=== PATIENT | female | born 1935 | race Caucasian/White ===

== ENCOUNTER → 2018-03-20 | Outpatient (CLI) | payer MEDICARE, BC ==
[~2018-03-20] MED LIST: ACET500 PO; ALBU2.5V5 INH; ALBU90OI6 INH; ALBU90OI61 INH; AMLO5 PO; BENZ100A PO; BISA10S PR; BUPR150ER PO; Bystolic10 MG PO; CVS DISPOSABLE399 ML PR; Cafergot Table1 EACH PO; Cyclobenzaprine5 MG PO; ERGO400 PO; FLUT1DIS5 INH; FURO40 PO; GABA300 PO; GUAIFENESIN AC473 ML PO; Guaifenesin Wit10 ML PO; Hair, Skin & N1 EACH PO; IBUP400 PO; Isosorbide Mono30 MG PO; LEVFLO500 PO; LIDO700A20 TOP; LISI20 PO; MELO7.5 PO; MONT10T PO; MULTI VITAMIN1 EACH PO; Milk Of Ma400 MG/5 M PO; NITR100CA PO; ONE DAILY ESS400 MCG PO; OXYC10ER PO; POTA10T PO; ROXICODONE5 MG PO; SACC250C PO; SPIR25 PO; Senna Plus Tab1 EACH PO; TAMS.4ER PO; TUDORZA PRESS400 MCG INH; Tylenol325 MG PO
[2018-03-20 08:18] LABS: Source, Urine Clean Catch
[2018-03-20 09:11] LABS: Bilirubin, Urine Neg (Neg); Blood, Urine Neg (Neg); Glucose Qualitative, Urine Neg (Normal); Ketones, Urine Neg (Neg); Leukocyte Esterase, Urine Neg (Neg); Nitrite, Urine Neg (Neg); Protein, Urine Neg (Neg); Urobilinogen, Urine NORM (Normal)
[2018-03-20 09:12] LABS: Appearance, Urine Clear (Clear); Color, Urine Yellow (P-Yellow)
== END | disposition home or self-care (01) ==
LOC: LAB EV 03-19 16:13 → EDSTATUS 08:03
PROVIDERS: Nurse Practitioner
DX: R35.0 Frequency of micturition (principal)
CPT/HCPCS: 81003

== ENCOUNTER 2018-04-03 06:58 | Day surgery (SDC) | payer MEDICARE, BC ==
[~2018-04-03] VITALS: Ht 154.9 cm; Wt 48.6 kg
--- NOTE | 2018-04-03 12:10 | NUR ---
PT RESTING COMFORTABLY, EATING LUNCH AT THIS TIME. NADN. BELTRAN
--- NOTE | 2018-04-03 15:29 | NUR ---
IV DC'D TIP INTACT, R RADIAL SITE DRESSED WITH R WRIST SPLINT IN PLACE, R/L GROIN SITES STABLE, PT'S GRANDAUGHTER PRESENT TO GIVE PT RIDE HOME, PT DC'D BY WC WITH FAMILY
== END 2018-04-03 15:48 | disposition home or self-care (01) ==
LOC: MHTC 06:58
DX: I25.10 Atherosclerotic heart disease of native coronary artery without angina pectoris (principal); I35.0 Nonrheumatic aortic (valve) stenosis; I73.9 Peripheral vascular disease, unspecified; I27.20 Pulmonary hypertension, unspecified; M79.7 Fibromyalgia; J43.9 Emphysema, unspecified; I12.9 Hypertensive chronic kidney disease with stage 1 through stage 4 chronic kidney disease, or unspecified chronic kidney disease; N18.9 Chronic kidney disease, unspecified; I25.2 Old myocardial infarction; Z87.891 Personal history of nicotine dependence; Z79.899 Other long term (current) drug therapy
CPT/HCPCS: 93456; 99152; C1760; C1769; J1644; J2250; J3010; J7030; Q9967

== ENCOUNTER 2018-04-08 11:17 | Emergency (ER) | payer MEDICARE, BC ==
[~2018-04-08] VITALS: Ht 157.5 cm; Wt 59.0 kg
[2018-04-08 11:44] LABS: BASOPHILS ABSOLUTE AUTO 0.02 K/mm3 (0.00-0.23); BASOPHILS PERCENT AUTO 0 % (0-2); EOSINOPHILS ABSOLUTE AUTO 0.11 K/mm3 (0.00-0.68); EOSINOPHILS PERCENT AUTO 2 % (0-6); Hematocrit 29.4 % (33.0-51.0); Hemoglobin 9.3 g/dL (11.5-16.0); IMMATURE GRAN ABSOLUTE AUTO 0.01 K/mm3 (0.00-0.10); IMMATURE GRAN PERCENT AUTO 0 % (0-1); LYMPHOCYTES ABSOLUTE AUTO 1.01 K/mm3 (0.84-5.20); LYMPHOCYTES PERCENT AUTO 20 % (21-46); MONOCYTES ABSOLUTE AUTO 0.49 K/mm3 (0.16-1.47); MONOCYTES PERCENT AUTO 10 % (4-13); Mean Corpuscular HGB 32.2 pg (26.0-34.0); Mean Corpuscular HGB Conc 31.6 g/dL (31.5-36.5); Mean Platelet Volume 9.1 fL (9.1-12.4); NEUTROPHILS ABSOLUTE AUTO 3.51 K/mm3 (1.96-9.15); NEUTROPHILS PERCENT AUTO 68 % (41-73); Platelet Count 210 K/mm3 (150-400); RDW Coefficient Variation 13.1 % (11.7-14.2); RDW Standard Deviation 48.9 fL (35.1-46.3); Red Blood Cell Count 2.89 M/mm3 (3.80-5.20); White Blood Cell Count 5.15 K/mm3 (4.00-11.30)
[2018-04-08 11:45] LABS: Mean Corpuscular Volume 102 fL (80-100)
[2018-04-08 12:10] LABS: Alanine Aminotransfer (ALT/SGP 14 U/L (12-78); Albumin, Blood 3.2 g/dL (3.4-5.0); Albumin/Globulin Ratio 0.8 (0.8-1.8); Alk Phos 62 U/L (50-136); Anion Gap 5 mmol/L (6-16); Aspartate Aminotrans (AST/SGOT 9 U/L (12-37); Bilirubin, Total 0.4 mg/dL (0.1-1.0); Blood Urea Nitrogen 25 mg/dL (8-24); Bun/Creatinine Ratio 33.6 (12.0-20.0); CO2, Blood 31 mmol/L (21-32); Calcium, Blood 9.1 mg/dL (8.5-10.1); Chloride, Blood 106 mmol/L (98-108); Creatinine, Blood 0.75 mg/dL (0.40-1.00); Globulin, Blood 4.2 g/dL (2.2-4.0); Glomerular Filtration Rate >60 (60-); Glucose, Blood 136 mg/dL (70-99); Potassium, Blood 4.1 mmol/L (3.5-5.5); Sodium, Blood 142 mmol/L (136-145); Total Protein, Blood 7.4 g/dL (6.4-8.2); Troponin I <0.015 ng/mL (0.000-0.040)
== END 2018-04-08 13:45 | disposition home or self-care (01) ==
LOC: ER 11:17
PROVIDERS: Physician Assistant
DX: J90 Pleural effusion, not elsewhere classified (principal); Z88.8 Allergy status to other drugs, medicaments and biological substances; Z79.899 Other long term (current) drug therapy; Z87.891 Personal history of nicotine dependence; Z88.3 Allergy status to other anti-infective agents
CPT/HCPCS: 36415; 71046; 80053; 84484; 85025; 93005; 93010; 99285-25

== ENCOUNTER 2018-08-29 03:32 | Observation (INO) | payer MEDICARE, BC ==
[~2018-08-29] VITALS: Ht 154.9 cm; Wt 53.5 kg
[~2018-08-29 03:32] MED LIST changes: +CETI5 PO; -ERGO400 PO; +FLUT1DIS2; +Prednisone20 MG PO; -ROXICODONE5 MG PO; +Roxicodone15 MG PO; +TRAZ50 PO; +VITAMIN D-32000 UNIT PO
[2018-08-29] MEDS ORDERED: TRAZODONE HYDROCHLOR (04:20)
[2018-08-29] MEDS ORDERED: IBUP800 (04:20)
[2018-08-29] MEDS ORDERED: CODEINE-GUAIFE120 ML (04:20)
[2018-08-29] MEDS ORDERED: CLOP75 PO (04:20)
[2018-08-29 05:12] LABS: BASOPHILS ABSOLUTE AUTO 0.01 K/mm3 (0.00-0.23); BASOPHILS PERCENT AUTO 0 % (0-2); EOSINOPHILS ABSOLUTE AUTO 0.02 K/mm3 (0.00-0.68); EOSINOPHILS PERCENT AUTO 0 % (0-6); Hematocrit 34.2 % (33.0-51.0); Hemoglobin 11.1 g/dL (11.5-16.0); IMMATURE GRAN ABSOLUTE AUTO 0.01 K/mm3 (0.00-0.10); IMMATURE GRAN PERCENT AUTO 0 % (0-1); LYMPHOCYTES ABSOLUTE AUTO 0.68 K/mm3 (0.84-5.20); LYMPHOCYTES PERCENT AUTO 10 % (21-46); MONOCYTES ABSOLUTE AUTO 0.71 K/mm3 (0.16-1.47); MONOCYTES PERCENT AUTO 10 % (4-13); Mean Corpuscular HGB 32.5 pg (26.0-34.0); Mean Corpuscular HGB Conc 32.5 g/dL (31.5-36.5); Mean Corpuscular Volume 100 fL (80-100); Mean Platelet Volume 9.8 fL (9.1-12.4); NEUTROPHILS ABSOLUTE AUTO 5.68 K/mm3 (1.96-9.15); NEUTROPHILS PERCENT AUTO 80 % (41-73); Platelet Count 134 K/mm3 (150-400); RDW Coefficient Variation 11.7 % (11.7-14.2); RDW Standard Deviation 42.8 fL (35.1-46.3); Red Blood Cell Count 3.42 M/mm3 (3.80-5.20); White Blood Cell Count 7.11 K/mm3 (4.00-11.30)
[2018-08-29 05:33] LABS: Alanine Aminotransfer (ALT/SGP 14 U/L (12-78); Albumin, Blood 3.1 g/dL (3.4-5.0); Albumin/Globulin Ratio 0.8 (0.8-1.8); Alk Phos 52 U/L (50-136); Anion Gap 6 mmol/L (6-16); Aspartate Aminotrans (AST/SGOT 22 U/L (12-37); Bilirubin, Total 0.6 mg/dL (0.1-1.0); Blood Urea Nitrogen 12 mg/dL (8-24); Bun/Creatinine Ratio 17.9 (12.0-20.0); CO2, Blood 28 mmol/L (21-32); Calcium, Blood 9.3 mg/dL (8.5-10.1); Chloride, Blood 105 mmol/L (98-108); Creatinine, Blood 0.67 mg/dL (0.40-1.00); Globulin, Blood 3.8 g/dL (2.2-4.0); Glomerular Filtration Rate >60 (60-); Glucose, Blood 121 mg/dL (70-99); Potassium, Blood 4.1 mmol/L (3.5-5.5); Sodium, Blood 139 mmol/L (136-145); Total Protein, Blood 6.9 g/dL (6.4-8.2)
[2018-08-29] MEDS ORDERED: ASPI81CH PO (12:41)
[2018-08-29] MEDS ORDERED: TUDORZA PRESS400 MCG INH (12:42)
[2018-08-29] MEDS ORDERED: BUDE6HFA INH (12:42)
--- NOTE | 2018-08-29 14:23 | NUR ---
echocardiogram completed
--- NOTE | 2018-08-29 17:22 | NUR ---
SHIFT SUMMARY PT ALERT AND ORIENTED. VS STABLE. O2 SATS REMAIN ABOVE 90% ON 2L NC. PT USES 2L NC AT BASELINE. PT DENIES CHEST PAIN SINCE ADMISSION. PT COMPLAINS OF DRY COUGH. PT MEDICATED PER EMAR FOR COUGH. PT ABLE TO AMBULATE TO BSC NEEDED WITH FWW. PT COMPLAINED OF CONSTIPATION UPON ADMISSION, BUT HAD A BOWEL MOVEMENT THIS SHIFT. WILL CONTINUE TO MONITOR AND REPORT TO ONCOMING RN. CALL LIGHT IN REACH.
[2018-08-30 04:08] LABS: BASOPHILS ABSOLUTE AUTO 0.01 K/mm3 (0.00-0.23); BASOPHILS PERCENT AUTO 0 % (0-2); EOSINOPHILS ABSOLUTE AUTO 0.05 K/mm3 (0.00-0.68); EOSINOPHILS PERCENT AUTO 1 % (0-6); Hematocrit 32.6 % (33.0-51.0); Hemoglobin 10.8 g/dL (11.5-16.0); IMMATURE GRAN ABSOLUTE AUTO 0.01 K/mm3 (0.00-0.10); IMMATURE GRAN PERCENT AUTO 0 % (0-1); LYMPHOCYTES ABSOLUTE AUTO 1.12 K/mm3 (0.84-5.20); LYMPHOCYTES PERCENT AUTO 18 % (21-46); MONOCYTES ABSOLUTE AUTO 0.65 K/mm3 (0.16-1.47); MONOCYTES PERCENT AUTO 11 % (4-13); Mean Corpuscular HGB 32.9 pg (26.0-34.0); Mean Corpuscular HGB Conc 33.1 g/dL (31.5-36.5); Mean Corpuscular Volume 99 fL (80-100); Mean Platelet Volume 9.3 fL (9.1-12.4); NEUTROPHILS ABSOLUTE AUTO 4.38 K/mm3 (1.96-9.15); NEUTROPHILS PERCENT AUTO 70 % (41-73); Platelet Count 156 K/mm3 (150-400); RDW Coefficient Variation 11.5 % (11.7-14.2); RDW Standard Deviation 41.9 fL (35.1-46.3); Red Blood Cell Count 3.28 M/mm3 (3.80-5.20); White Blood Cell Count 6.22 K/mm3 (4.00-11.30)
[2018-08-30 04:26] LABS: Anion Gap 5 mmol/L (6-16); Blood Urea Nitrogen 9 mg/dL (8-24); Bun/Creatinine Ratio 15.3 (12.0-20.0); CO2, Blood 30 mmol/L (21-32); Calcium, Blood 9.5 mg/dL (8.5-10.1); Chloride, Blood 102 mmol/L (98-108); Creatinine, Blood 0.59 mg/dL (0.40-1.00); Glomerular Filtration Rate >60 (60-); Glucose, Blood 99 mg/dL (70-99); Potassium, Blood 3.6 mmol/L (3.5-5.5); Sodium, Blood 137 mmol/L (136-145)
--- NOTE | 2018-08-30 05:00 | NUR ---
PATIENT HAS NOT SLEPT MUCH. PATIENT ABLE TO ANSWER QUESTIONS APPROPRIATELY BUT OFTEN FORGETS WHAT SHE SAID OR DID WHILE I AM IN THE ROOM. PATIENT IS A ONE ASSIST TO GET UP TO THE COMMODE. SHE IS VERY UNSTEADY AND IS NOT ABLE TO GET UP WITHOUT ASSISTANCE. PATIENT IS STRUGGLING TO MOVE RIGHT LEG WITHOUT HELP. PATIENT IS ASKING IF SHE CAN GO TO A SNF. PATIENT IS ALSO COMPLAINING OF SHORTNESS OF BREATH AT TIMES. STATES SHE IS STRUGGLING WITH THE COUGHING AND SHORTNESS OF BREATH. STATES HER BREATH HAS BECOME VERY POOR SINCE HER SURGERY. PATIENT ABLE TO MAINTAIN SATURATION GREATER THAN 93% ON 2L THROUGH OUT THE NIGHT.
--- NOTE | 2018-08-30 05:00 | NUR ---
PATIENT TROPONIN CONTINUES TO TREND DOWN NOW 0.934.
[2018-08-30] MEDS ORDERED: ATOR10 PO (13:06)
[2018-08-30] MEDS ORDERED: Mucinex1200 MG PO (13:08)
[2018-08-30] MEDS ORDERED: Lopressor 25 mg25 MG PO (13:09)
--- NOTE | 2018-08-30 16:20 | NUR ---
PT ALERT AND ORIENTED. VS STABLE O2 SATS REMAIN ABOVE 90% ON BASELINE O2 OF 2L NC. ORDERS FOR DISCHARGE PROVIDED. PT EDUCATED ON DISCHARGE INSTRUCTIONS. PT EDUCATED ON NEW MEDICATIONS. IV REMOVED. TELE REMOVED. BELONGINGS RETURNED. ALL QUESTIONS ANSWERED. PT TAKEN OUT BY WHEELCHAIR.
[2018-12-07] MEDS ORDERED: ERGO400 PO (10:40)
[2018-12-07] MEDS ORDERED: THERA1 EACH PO (10:40)
[2018-12-10] MEDS ORDERED: Roxicodone15 MG PO (17:25)
[2018-12-10] MEDS ORDERED: TUDORZA PRESS400 MCG (17:26)
[2018-12-10] MEDS ORDERED: TRAZ50 PO (17:27)
[2018-12-10] MEDS ORDERED: BUDE6HFA INH (17:27)
[2018-12-10] MEDS ORDERED: ELIQUIS5 MG PO (17:28)
[2018-12-10] MEDS ORDERED: Bupropion HCl150 M2 PO (17:29)
[2018-12-10] MEDS ORDERED: DONE10 PO (17:30)
[2018-12-10] MEDS ORDERED: ATORVASTATIN CA20 MG PO (17:30)
[2018-12-10] MEDS ORDERED: CLOP75 PO (17:30)
== END 2018-08-30 16:15 | disposition home or self-care (01) ==
LOC: ER 03:32 → MEDS 03:35 → PCU 12:21
PROVIDERS: Emergency Medicine; ADMIT Student in an Organized Health Care Education/Training Program
DX: R07.89 Other chest pain (principal); I35.0 Nonrheumatic aortic (valve) stenosis; I10 Essential (primary) hypertension; J44.9 Chronic obstructive pulmonary disease, unspecified; D64.9 Anemia, unspecified; J96.10 Chronic respiratory failure, unspecified whether with hypoxia or hypercapnia; I44.7 Left bundle-branch block, unspecified; I25.10 Atherosclerotic heart disease of native coronary artery without angina pectoris; M79.7 Fibromyalgia; M81.0 Age-related osteoporosis without current pathological fracture; F32.9 Major depressive disorder, single episode, unspecified; I25.2 Old myocardial infarction; K22.4 Dyskinesia of esophagus; R77.8 Other specified abnormalities of plasma proteins; M19.90 Unspecified osteoarthritis, unspecified site; Z95.2 Presence of prosthetic heart valve; Z87.891 Personal history of nicotine dependence; Z99.81 Dependence on supplemental oxygen; Z88.8 Allergy status to other drugs, medicaments and biological substances; Z79.899 Other long term (current) drug therapy; Z79.02 Long term (current) use of antithrombotics/antiplatelets; Z79.891 Long term (current) use of opiate analgesic; Z79.1 Long term (current) use of non-steroidal anti-inflammatories (NSAID); Z79.51 Long term (current) use of inhaled steroids
CPT/HCPCS: 36415; 71046; 80048; 80053; 83880; 84484; 85025; 93005; 93010; 93306; 94640; 94760; 96372; 97161; 97530; 99285-25; A9270; G0378; J1644

== ENCOUNTER 2018-09-01 15:59 | Emergency (ER) | payer MEDICARE, BC ==
[~2018-09-01] VITALS: Ht 154.9 cm; Wt 52.2 kg
[~2018-09-01 15:59] MED LIST changes: +ASPI81CH PO; +ATOR10 PO; +BUDE6HFA INH; +CLOP75 PO; +CODEINE-GUAIFE120 ML; +IBUP800; +Lopressor 25 mg25 MG PO; +Mucinex1200 MG PO; +TRAZODONE HYDROCHLOR
[2018-09-01 16:52] LABS: BASOPHILS ABSOLUTE AUTO 0.02 K/mm3 (0.00-0.23); BASOPHILS PERCENT AUTO 0 % (0-2); EOSINOPHILS ABSOLUTE AUTO 0.05 K/mm3 (0.00-0.68); EOSINOPHILS PERCENT AUTO 1 % (0-6); Hematocrit 32.7 % (33.0-51.0); Hemoglobin 10.6 g/dL (11.5-16.0); IMMATURE GRAN ABSOLUTE AUTO 0.04 K/mm3 (0.00-0.10); IMMATURE GRAN PERCENT AUTO 0 % (0-1); LYMPHOCYTES ABSOLUTE AUTO 0.62 K/mm3 (0.84-5.20); LYMPHOCYTES PERCENT AUTO 7 % (21-46); MONOCYTES ABSOLUTE AUTO 1.13 K/mm3 (0.16-1.47); MONOCYTES PERCENT AUTO 12 % (4-13); Mean Corpuscular HGB 32.4 pg (26.0-34.0); Mean Corpuscular HGB Conc 32.4 g/dL (31.5-36.5); Mean Corpuscular Volume 100 fL (80-100); Mean Platelet Volume 9.5 fL (9.1-12.4); NEUTROPHILS ABSOLUTE AUTO 7.58 K/mm3 (1.96-9.15); NEUTROPHILS PERCENT AUTO 80 % (41-73); Platelet Count 213 K/mm3 (150-400); RDW Coefficient Variation 11.4 % (11.7-14.2); RDW Standard Deviation 41.7 fL (35.1-46.3); Red Blood Cell Count 3.27 M/mm3 (3.80-5.20); White Blood Cell Count 9.44 K/mm3 (4.00-11.30)
[2018-09-01 17:07] LABS: Troponin I 0.165 ng/mL (0.000-0.040)
[2018-09-01 17:12] LABS: Alanine Aminotransfer (ALT/SGP 18 U/L (12-78); Albumin, Blood 2.9 g/dL (3.4-5.0); Albumin/Globulin Ratio 0.7 (0.8-1.8); Alk Phos 50 U/L (50-136); Anion Gap 7 mmol/L (6-16); Aspartate Aminotrans (AST/SGOT 17 U/L (12-37); Bilirubin, Total 0.5 mg/dL (0.1-1.0); Blood Urea Nitrogen 25 mg/dL (8-24); Bun/Creatinine Ratio 32.9 (12.0-20.0); CO2, Blood 29 mmol/L (21-32); Calcium, Blood 9.3 mg/dL (8.5-10.1); Chloride, Blood 102 mmol/L (98-108); Creatinine, Blood 0.76 mg/dL (0.40-1.00); Globulin, Blood 3.9 g/dL (2.2-4.0); Glomerular Filtration Rate >60 (60-); Glucose, Blood 138 mg/dL (70-99); Potassium, Blood 3.8 mmol/L (3.5-5.5); Sodium, Blood 138 mmol/L (136-145); Total Protein, Blood 6.8 g/dL (6.4-8.2)
[2018-09-01 17:28] LABS: Source, Urine Catheter
[2018-09-01 17:30] LABS: Bilirubin, Urine Neg (Neg); Blood, Urine 2+ (Neg); Glucose Qualitative, Urine Neg (Neg); Ketones, Urine 2+ (Neg); Leukocyte Esterase, Urine 1+ (Neg); Nitrite, Urine Neg (Neg); Protein, Urine 1+ (Neg); Urobilinogen, Urine 1+ (Normal)
[2018-09-01 17:38] LABS: Appearance, Urine Hazy (Clear); Color, Urine Yellow (P-Yellow)
[2018-09-01 17:43] LABS: Red Blood Cells, Urine 0-2 /hpf (0-2); Squamous Epithelial Cells Not Seen /hpf (Few); White Blood Cells, Urine 0-2 /hpf (0-5)
[2018-09-01 17:44] LABS: Bacteria Rare /hpf
[2018-09-01] MEDS ORDERED: VOLTAREN100 GM TOP (18:40)
[2018-09-01] MEDS ORDERED: Cheratussin AC118 ML PO (18:42)
[2018-09-01] MEDS ORDERED: BENZ100A PO (18:42)
[2018-09-01] MEDS ORDERED: IBUP800 PO (18:44)
[2018-09-01] MEDS ORDERED: DONE5 PO (18:50)
[2018-09-01] MEDS ORDERED: GABA100 (18:53)
[2018-12-07] MEDS ORDERED: ERGO400 PO (10:40)
[2018-12-07] MEDS ORDERED: THERA1 EACH PO (10:40)
[2018-12-10] MEDS ORDERED: Roxicodone15 MG PO (17:25)
[2018-12-10] MEDS ORDERED: TUDORZA PRESS400 MCG (17:26)
[2018-12-10] MEDS ORDERED: TRAZ50 PO (17:27)
[2018-12-10] MEDS ORDERED: BUDE6HFA INH (17:27)
[2018-12-10] MEDS ORDERED: ELIQUIS5 MG PO (17:28)
[2018-12-10] MEDS ORDERED: Bupropion HCl150 M2 PO (17:29)
[2018-12-10] MEDS ORDERED: ATORVASTATIN CA20 MG PO (17:30)
[2018-12-10] MEDS ORDERED: CLOP75 PO (17:30)
[2018-12-10] MEDS ORDERED: DONE10 PO (17:30)
== END 2018-09-01 20:46 | disposition home or self-care (01) ==
LOC: ER 15:59
PROVIDERS: Emergency Medicine
DX: R07.2 Precordial pain (principal); R79.89 Other specified abnormal findings of blood chemistry; R53.1 Weakness; J44.9 Chronic obstructive pulmonary disease, unspecified; G43.909 Migraine, unspecified, not intractable, without status migrainosus; D64.9 Anemia, unspecified; Z87.891 Personal history of nicotine dependence
CPT/HCPCS: 36415; 71046; 80053; 81001; 84484; 85025; 87086; 93005; 93010; 99285-25

== ENCOUNTER 2018-10-10 12:24 | Inpatient (IN) | payer MEDICARE, BC ==
[~2018-10-10] VITALS: Ht 154.9 cm; Wt 56.2 kg
[~2018-10-10 12:24] MED LIST changes: +Cheratussin AC118 ML PO; +DONE5 PO; +GABA100; +IBUP800 PO; +VOLTAREN100 GM TOP
[2018-10-10 13:31] LABS: BASOPHILS ABSOLUTE AUTO 0.02 K/mm3 (0.00-0.23); BASOPHILS PERCENT AUTO 0 % (0-2); EOSINOPHILS ABSOLUTE AUTO 0.14 K/mm3 (0.00-0.68); EOSINOPHILS PERCENT AUTO 2 % (0-6); Hemoglobin 10.5 g/dL (11.5-16.0); IMMATURE GRAN ABSOLUTE AUTO 0.02 K/mm3 (0.00-0.10); IMMATURE GRAN PERCENT AUTO 0 % (0-1); LYMPHOCYTES ABSOLUTE AUTO 0.53 K/mm3 (0.84-5.20); LYMPHOCYTES PERCENT AUTO 6 % (21-46); MONOCYTES PERCENT AUTO 6 % (4-13); Mean Corpuscular HGB 31.6 pg (26.0-34.0); Mean Corpuscular HGB Conc 30.9 g/dL (31.5-36.5); Mean Corpuscular Volume 102 fL (80-100); Mean Platelet Volume 10.1 fL (9.1-12.4); NEUTROPHILS ABSOLUTE AUTO 7.28 K/mm3 (1.96-9.15); NEUTROPHILS PERCENT AUTO 86 % (41-73); Platelet Count 201 K/mm3 (150-400); RDW Coefficient Variation 12.2 % (11.7-14.2); RDW Standard Deviation 46.2 fL (35.1-46.3); Red Blood Cell Count 3.32 M/mm3 (3.80-5.20); White Blood Cell Count 8.49 K/mm3 (4.00-11.30)
[2018-10-10] MEDS ORDERED: ELIQUIS2.5 MG PO (13:59)
[2018-10-10] MEDS ORDERED: CLOP75 PO (13:59)
[2018-10-10] MEDS ORDERED: BUPR75 PO (13:59)
[2018-10-10 14:12] LABS: Troponin I <0.015 ng/mL (0.000-0.040)
[2018-10-10 14:20] LABS: Alanine Aminotransfer (ALT/SGP 19 U/L (12-78); Albumin, Blood 3.2 g/dL (3.4-5.0); Albumin/Globulin Ratio 0.8 (0.8-1.8); Alk Phos 60 U/L (50-136); Anion Gap 6 mmol/L (6-16); Aspartate Aminotrans (AST/SGOT 28 U/L (12-37); Bilirubin, Total 0.3 mg/dL (0.1-1.0); Blood Urea Nitrogen 18 mg/dL (8-24); Bun/Creatinine Ratio 29.8 (12.0-20.0); CO2, Blood 31 mmol/L (21-32); Calcium, Blood 8.9 mg/dL (8.5-10.1); Chloride, Blood 104 mmol/L (98-108); Creatinine, Blood 0.61 mg/dL (0.40-1.00); Glomerular Filtration Rate >60 (60-); Glucose, Blood 174 mg/dL (70-99); Potassium, Blood 4.1 mmol/L (3.5-5.5); Sodium, Blood 141 mmol/L (136-145); Total Protein, Blood 7.2 g/dL (6.4-8.2)
[2018-10-10] MEDS ORDERED: BUDE6HFA INH (15:00)
[2018-10-10] MEDS ORDERED: BUPR150T2 PO (15:00)
[2018-10-10] MEDS ORDERED: DONE10 PO (15:01)
[2018-10-10] MEDS ORDERED: TRAZ50 PO (15:02)
[2018-10-10] MEDS ORDERED: VOLTAREN100 GM TOP (15:02)
[2018-10-10] MEDS ORDERED: GUAIFENESIN AC473 ML PO (15:05)
--- NOTE | 2018-10-10 19:38 | NUR ---
CARE ASSUMPTION PT A&O X4. MONITOR SHOWS AFIB, HR 110-150. BP ELEVATED. CARDIZEM GTT INITIATED, WILL CONTINUE TO MONITOR AND TITRATE NEEDED/ORDERED. LUNG SOUNDS DIM T/O. SPO2 > 92% ON 2L NC WHICH PT REPORTS TO BE HER HOME O2 USE. PT RECENTLY UP TO BSC FOR MEDIUM SIZED, FORMED, BROWN BM. PT UNSTEADY ON FEET, REQUIRING 1-2 PERSON ASSIST W/ FWW. PT C/O R HIP PAIN AND REPORTS AN UPCOMING APPOINTMENT IN FOR R HIP REPLACEMENT. PT REPORTS "IT'S BECAUSE OF WAITING FOR THIS HIP REPLACEMENT THAT'S CAUSING ME ALL THESE PROBLEMS." PT REPORTS FEELING SOB FOR SEVERAL DAYS. PT SOB W/ GETTING UP TO BSC. BREATHING NOW RECOVERED WHILE AT REST IN BED. WILL CONTINUE TO MONITOR AND PROVIDE CARE.
--- NOTE | 2018-10-11 03:16 | NUR ---
SHIFT SUMMARY PT A&O X4. VSS. MARIO GTT PLACED ON STANDBY AT 0235 THIS AM D/T HR 70'S. MONITOR CONTINUES TO SHOW AFIB, HR 70-90. PT AWAKE T/O SHIFT, STATES "I DO THIS. I SLEPT LAST NIGHT, SO I'M AWAKE TONIGHT." PT C/O COUGH T/O SHIFT. COUGH NONWITNESSED. PT PROVIDED W/ MEDICATION PER EMAR/PT REQUEST. LUNG SOUNDS DIM T/O. SPO2 > 92% ON 2L NC. PT C/O R HIP PAIN, MEDICATING PER EMAR. WILL CONTINUE TO MONITOR AND PROVIDE CARE UNTIL REPORT OFF TO DAY SHIFT RN.
[2018-10-11 03:54] LABS: BASOPHILS ABSOLUTE AUTO 0.02 K/mm3 (0.00-0.23); BASOPHILS PERCENT AUTO 0 % (0-2); EOSINOPHILS ABSOLUTE AUTO 0.07 K/mm3 (0.00-0.68); EOSINOPHILS PERCENT AUTO 1 % (0-6); Hematocrit 32.9 % (33.0-51.0); IMMATURE GRAN ABSOLUTE AUTO 0.02 K/mm3 (0.00-0.10); IMMATURE GRAN PERCENT AUTO 0 % (0-1); LYMPHOCYTES ABSOLUTE AUTO 0.97 K/mm3 (0.84-5.20); LYMPHOCYTES PERCENT AUTO 14 % (21-46); MONOCYTES ABSOLUTE AUTO 0.57 K/mm3 (0.16-1.47); MONOCYTES PERCENT AUTO 8 % (4-13); Mean Corpuscular HGB 30.8 pg (26.0-34.0); Mean Corpuscular HGB Conc 30.4 g/dL (31.5-36.5); Mean Corpuscular Volume 101 fL (80-100); Mean Platelet Volume 9.7 fL (9.1-12.4); NEUTROPHILS ABSOLUTE AUTO 5.53 K/mm3 (1.96-9.15); NEUTROPHILS PERCENT AUTO 77 % (41-73); Platelet Count 167 K/mm3 (150-400); RDW Coefficient Variation 12.3 % (11.7-14.2); RDW Standard Deviation 46.3 fL (35.1-46.3); Red Blood Cell Count 3.25 M/mm3 (3.80-5.20); White Blood Cell Count 7.18 K/mm3 (4.00-11.30)
[2018-10-11 04:18] LABS: Alanine Aminotransfer (ALT/SGP 16 U/L (12-78); Albumin, Blood 3.2 g/dL (3.4-5.0); Albumin/Globulin Ratio 0.8 (0.8-1.8); Alk Phos 64 U/L (50-136); Anion Gap 7 mmol/L (6-16); Aspartate Aminotrans (AST/SGOT 18 U/L (12-37); Bilirubin, Total 0.3 mg/dL (0.1-1.0); Blood Urea Nitrogen 16 mg/dL (8-24); Bun/Creatinine Ratio 32.1 (12.0-20.0); CO2, Blood 29 mmol/L (21-32); Chloride, Blood 105 mmol/L (98-108); Glomerular Filtration Rate >60 (60-); Glucose, Blood 108 mg/dL (70-99); Magnesium, Blood 2.2 mg/dL (1.6-2.4); Potassium, Blood 3.9 mmol/L (3.5-5.5); Sodium, Blood 141 mmol/L (136-145); Total Protein, Blood 7.2 g/dL (6.4-8.2)
[2018-10-11 04:27] LABS: Thyroid Stimulating Hormone 0.779 uIU/mL (0.360-4.800)
--- NOTE | 2018-10-11 08:15 | NUR ---
AM NOTE. ASSUMED CARE OF PT APROX 0700, PT IS A&Ox4 AND SBA-1 PERSON W/FWW. PT IS IN AFIB IN THE 90'S-100'S PER MONITORS, OTHER VS STABLE AT THIS TIME. PT'S L/S CLEAR AND DIM T/O, PT IS ON HOME DOSE OF O2 AT 2L NC WITH O2 SATS >90%. NO EDEMA NOTED ON ASSESSMENT. BT PRESENT AND NORMOACTIVE, ABD IS SOFT AND NONTENDER TO PALP. PT WAS ENCOURAGED TO GET UP TO CHAIR FOR LUNCH, PT STATED "I CAN'T BECAUSE IF I MOVE MY HIP HURTS." PT EDUCATED ON PAIN MANAGMENT, MOBILITY AND PRESSURE ULCER PREVENTION, PT THEN STATED "I CAN'T GET UP BECAUSE OF MY BREATHING, BECAUSE I HAVE PNEUMONIA I JUST CAN'T GET UP." PT EDUCATED ON THE BENEFITS OF GETTING UP OUT OF BED ESPECIALLY WITH PNEUMONIA, PT STATED SHE UNDERSTOOD BUT DID NOT WANT TO GET UP OUT OF BED. PT WAS GIVEN AN INCENTIVE SPIROMETER AND EDUCATED ON ITS USE WELL. PT STATED HER UNDERSTANDING. CALL LIGHT IN REACH WILL CONTINUE TO MONITOR.
--- NOTE | 2018-10-11 17:49 | NUR ---
SHIFT SUMMARY. NO ACUTE CHANGES NOTED THIS SHIFT. PT'S VS STABLE. PT DENIES ANY CHEST PAIN/PRESSURE. PT HAS BEEN ON HOME DOSE OF O2 T/O SHIFT. PT HAS BEEN GETTING UP AND WALKING TO THE BATHROOM TO VOID, PT TOLERATES THIS WELL WITH MINIMAL SOB. PT HAS BEEN REFUSING TO GET UP AND SIT IN A CHAIR FOR MEALS. CALL LIGHT IN REACH, WILL CONTINUE TO MONITOR UNTIL REPORT IS GIVEN TO ONCOMING RN.
[2018-10-12 04:32] LABS: BASOPHILS ABSOLUTE AUTO 0.02 K/mm3 (0.00-0.23); BASOPHILS PERCENT AUTO 0 % (0-2); EOSINOPHILS ABSOLUTE AUTO 0.02 K/mm3 (0.00-0.68); EOSINOPHILS PERCENT AUTO 0 % (0-6); Hematocrit 32.6 % (33.0-51.0); Hemoglobin 10.2 g/dL (11.5-16.0); IMMATURE GRAN ABSOLUTE AUTO 0.01 K/mm3 (0.00-0.10); IMMATURE GRAN PERCENT AUTO 0 % (0-1); LYMPHOCYTES ABSOLUTE AUTO 1.06 K/mm3 (0.84-5.20); LYMPHOCYTES PERCENT AUTO 16 % (21-46); MONOCYTES ABSOLUTE AUTO 0.58 K/mm3 (0.16-1.47); MONOCYTES PERCENT AUTO 9 % (4-13); Mean Corpuscular HGB 31.6 pg (26.0-34.0); Mean Corpuscular HGB Conc 31.3 g/dL (31.5-36.5); Mean Corpuscular Volume 101 fL (80-100); Mean Platelet Volume 9.2 fL (9.1-12.4); NEUTROPHILS ABSOLUTE AUTO 4.82 K/mm3 (1.96-9.15); NEUTROPHILS PERCENT AUTO 74 % (41-73); Platelet Count 192 K/mm3 (150-400); RDW Coefficient Variation 11.9 % (11.7-14.2); RDW Standard Deviation 44.2 fL (35.1-46.3); Red Blood Cell Count 3.23 M/mm3 (3.80-5.20); White Blood Cell Count 6.51 K/mm3 (4.00-11.30)
--- NOTE | 2018-10-12 04:48 | NUR ---
SHIFT SUMMARY PT A&O X4. VSS. NO EVENTS OVERNIGHT. PT MANAGING TO SLEEP THIS SHIFT. LUNG SOUNDS CONTINUE TO BE DIM T/O. SPO2 > 92% ON 2L NC HOME O2 USE. WILL CONTINUE TO MONITOR AND PROVIDE CARE UNTIL REPORT OFF TO DAY SHIFT RN.
[2018-10-12 04:51] LABS: Anion Gap 5 mmol/L (6-16); Blood Urea Nitrogen 15 mg/dL (8-24); Bun/Creatinine Ratio 25.5 (12.0-20.0); CO2, Blood 32 mmol/L (21-32); Calcium, Blood 9.4 mg/dL (8.5-10.1); Chloride, Blood 104 mmol/L (98-108); Creatinine, Blood 0.59 mg/dL (0.40-1.00); Glomerular Filtration Rate >60 (60-); Glucose, Blood 109 mg/dL (70-99); Potassium, Blood 4.2 mmol/L (3.5-5.5); Sodium, Blood 141 mmol/L (136-145)
--- NOTE | 2018-10-12 08:49 | NUR ---
AM NOTE. ASSUMED CARE OF PT APROX 0700, PT IS A&Ox4 BUT FORGETFUL AT TIMES. PT WAS ADMITTED FOR PNA AND FOUND TO BE IN AFIB RVR. CURRENTLY THE PT IS IN AFIB IN THE 100'S-120'S, THIS HAS INCREASED FROM YESTERDAY. PT'S VS STABLE AT THIS TIME. PT DENIES ANY CHEST PAIN/PRESSURE. PT IS ON HOME DOSE OF O2 AT 2L NC. PT IS ENCOURAGED TO GET UP INTO A CHAIR FOR MEALS AND WALK TO THE BATHROOM INSTEAD OF USING THE BSC. PT HAS REFUSED TO GET UP INTO A CHAIR FOR MEALS AT THIS TIME. WILL CONTINUE TO MONITOR.
--- NOTE | 2018-10-12 17:21 | NUR ---
SHIFT SUMMARY. PT'S HR HAS SLOWLY BEEN TRENDING UP, PROVIDER AT THE BEDSIDE FOR ASSESSMENT, PT WAS PUT BACK ON CARDIZEM GTT, GTT STARTED AT 10. PT'S VS STABLE AT THIS TIME. PT'S HR IS CURRENTLY AFIB IN THE 100'S. PT GOT UP TO THE CHAIR FOR LUNCH AND WAS UP IN THE CHAIR FOR APROX 1.5 HOURS. PT HAS BEEN C/O OF PAIN TO HER RIGHT HIP STATING THE PAIN MEDICATIONS WE HAVE HER ON CURRENTLY ARE NOT HELPING. PT WAS EDUCATED ON NON-NARCOTIC PAIN MANAGMENT, AND HOW MOBILITY CAN HELP WITH PAIN MANAGMENT. PT STATED HER UNDERSTANDING. CALL LIGHT IN REACH, BED IS LOCKED AND LOW WILL CONTINUE TO MONITOR UNTIL REPORT IS GIVEN TO ONCOMING RN.
--- NOTE | 2018-10-12 22:06 | NUR ---
Assumed care of pt at appros 191. Pt presents sitting in bed, breathing easy and unlabored, Cardizem gtt infusing at 10; hr in 90's - 100's per electrical electronics technician. Pt denies SOB or chest pain or pressure. pt states "I get short of breath when i get up to go to the bathroom". Pt alert and oriented, able to make needs known, uses call light appropriately. See shift assessment for detailed systems assessment. Will continue to monitor.
--- NOTE | 2018-10-12 22:07 | NUR ---
Cardizem Gtt off at 2205. Pt with recieved metoprolol per orders; at approx 2130 HR sustained in 60's and 70's, cardizem gtt turned down to 5. HR continued in 60's and cardizem gtt turned onto standby. Will continue to monitor HR.
--- NOTE | 2018-10-13 06:33 | NUR ---
Shift Summary VSS this shift, cardizem gtt off d/t hr in 60's after 25mg metoprolol per orders. Pt sleeping, restful. Up to bathroom with FWW, calls appropriately. No changes to tele. Breathing remains easy and unlabored. Pt remains alert and oriented, no changes to mentation noted. Pt denies pain, denies SOB, denies NAVA. Will continue to monitor and provide care until day shift RN assumes care.
--- NOTE | 2018-10-13 08:49 | NUR ---
AM NOTE. ASSUMED CARE OF PT APROX 0700, PT IS A&Ox4 AND FORGETFUL AT TIMES. PT IS NOT ON CARDIZEM GTT AT THIS TIME, PT'S RATE IS IN THE 90'S-100'S PER CARAMEL CUTTER HAND. PT DENEIS CHEST PAIN/PRESSURE, N/V BUT HAS SOB WITH ACTIVITY. L/S CLEAR AND DIM T/O. PT IS ON HOME O2 DOSE AT 2L NC WITH O2 SATS >90%. BT PRESENT AND HYPOACTIVE, ABD IS SOFT AND NONTENDER TO PALP. CALL LIGHT IN REACH, BED IS LOCKED AND LOW WILL CONTINUE TO MONITOR.
[2018-10-13] MEDS ORDERED: ACET325 PO (13:50)
[2018-10-13] MEDS ORDERED: ALBU2.5V5 INH (13:52)
[2018-10-13] MEDS ORDERED: AMOCLA500 PO (14:02)
[2018-10-13] MEDS ORDERED: GABA300 PO (14:03)
[2018-10-13] MEDS ORDERED: METO25 PO (14:15)
[2018-10-13] MEDS ORDERED: PRED20 PO (14:17)
--- NOTE | 2018-10-13 14:58 | NUR ---
PT D/C. PT WAS D/C'D HOME, PT EDUCATION PROIVDED TO PT AND DAUGHTER IN LAW WHO IS THE PT'S CAREGIVER. PT WAS EDUCATED ON CHRONIC PAIN AND NON-NARCOTIC PAIN MANAGMENT. PT WAS INFORMED ABOUT CHRONIC PAIN CLASS AND GIVEN THE PAIN MANAGMENT HANDOUT. PT'S MEDICATIONS WERE CALLED INTO THE PT'S PHARMACY OF CHOICE. ALL OF PT'S BELONGINGS WERE PACKED AND SENT WITH THE PT. PT'S 2 IV'S WERE REMOVED WNL.
[2018-12-07] MEDS ORDERED: THERA1 EACH PO (10:40)
[2018-12-07] MEDS ORDERED: ERGO400 PO (10:40)
[2018-12-10] MEDS ORDERED: Roxicodone15 MG PO (17:25)
[2018-12-10] MEDS ORDERED: TUDORZA PRESS400 MCG (17:26)
[2018-12-10] MEDS ORDERED: TRAZ50 PO (17:27)
[2018-12-10] MEDS ORDERED: BUDE6HFA INH (17:27)
[2018-12-10] MEDS ORDERED: ELIQUIS5 MG PO (17:28)
[2018-12-10] MEDS ORDERED: Bupropion HCl150 M2 PO (17:29)
[2018-12-10] MEDS ORDERED: ATORVASTATIN CA20 MG PO (17:30)
[2018-12-10] MEDS ORDERED: CLOP75 PO (17:30)
[2018-12-10] MEDS ORDERED: DONE10 PO (17:30)
== END 2018-10-13 15:26 | disposition home or self-care (01) | DRG 194 ==
LOC: ER 12:24 → PCU 16:23 → EDBEDREQSVC 16:48 → PCU 18:30
PROVIDERS: Physician Assistant; ADMIT Student in an Organized Health Care Education/Training Program
DX: J18.9 Pneumonia, unspecified organism (principal); J44.0 Chronic obstructive pulmonary disease with (acute) lower respiratory infection; I48.91 Unspecified atrial fibrillation; Z95.2 Presence of prosthetic heart valve; I10 Essential (primary) hypertension; M79.7 Fibromyalgia; M81.0 Age-related osteoporosis without current pathological fracture; Z87.891 Personal history of nicotine dependence; Z79.02 Long term (current) use of antithrombotics/antiplatelets; G89.29 Other chronic pain; I35.0 Nonrheumatic aortic (valve) stenosis; M25.559 Pain in unspecified hip
CPT/HCPCS: 36415; 71046; 80048; 80053; 83735; 83880; 84443; 84484; 85025; 93005; 93010; 94640; 94760; 96365; 96367; 96375; 96376; 97110; 97116; 97161; 97165; 97530; 99285-25; A9270; J0456; J0696; J2920; J7030; J7050

== ENCOUNTER 2018-12-07 15:35 | Inpatient (IN) | payer MEDICARE, BC ==
[~2018-12-07] VITALS: Ht 154.9 cm; Wt 52.9 kg
[~2018-12-07 15:35] MED LIST changes: +ACET325 PO; +AMOCLA500 PO; +BUPR150T2 PO; +BUPR75 PO; +DONE10 PO; +ELIQUIS2.5 MG PO; +ERGO400 PO; +METO25 PO; +PRED20 PO; +THERA1 EACH PO
--- NOTE | 2018-12-08 06:34 | NUR ---
INTO [facility] VSS ADMISSION TO UNIT STARTED. History, Chart, Medications and Allergies reviewed before start of procedure.Lungs clear T/O to Auscultation. Patient States Post-Procedure ride home has been arranged.
--- NOTE | 2018-12-08 07:50 | NUR ---
DENTURES LEFT IN PATIENT PER ANNESTHESIOLOGIST. PATIENT VOIDED JUST PRIO TO GOING BACK TO [facility]
--- NOTE | 2018-12-08 10:11 | NUR ---
12/08/18 1011 Eitan Wheeler CORAIL HIP STEM REF [id number] LOT [id number] SIZE 15 EXPIRES 2021-09-23 RIGHT HIP
--- NOTE | 2018-12-08 11:19 | NUR ---
REPORT TO VEENA DOLAN RN. PT B/P AND OXYGENATION IMPROVING. XRAY CALLED. ICE TO R HIP.
--- NOTE | 2018-12-08 18:32 | NUR ---
SHIFT SUMMARY PT'S PAIN WELL CONTROLLED, WORKED WITH THERAPY, SAT UP IN CHIAR UNTIL AFTER DINNER, VOIDED EASILY, DECLINED WALK IN HALLWAY DUE TO FEELING SHORT OF BREATHE. ASSISTED TO BED TO REST. IS EDUCATION DONE.
--- NOTE | 2018-12-09 03:09 | NUR ---
Patient A/O x4. VSS. supplemental oxygen at 2L per NC. IV leaking, 22g placed in left forearm; flushes with ease. Ambulating to bathroom with standby assist and FWW. Voiding freely. Pain managed. medicated as ordered. Dressing to [facility] D/C/I.
[2018-12-09 05:19] LABS: BASOPHILS ABSOLUTE AUTO 0.01 K/mm3 (0.00-0.23); BASOPHILS PERCENT AUTO 0 % (0-2); EOSINOPHILS ABSOLUTE AUTO 0.01 K/mm3 (0.00-0.68); EOSINOPHILS PERCENT AUTO 0 % (0-6); Hematocrit 26.6 % (33.0-51.0); Hemoglobin 8.4 g/dL (11.5-16.0); IMMATURE GRAN ABSOLUTE AUTO 0.02 K/mm3 (0.00-0.10); IMMATURE GRAN PERCENT AUTO 0 % (0-1); LYMPHOCYTES ABSOLUTE AUTO 1.06 K/mm3 (0.84-5.20); LYMPHOCYTES PERCENT AUTO 15 % (21-46); MONOCYTES ABSOLUTE AUTO 0.68 K/mm3 (0.16-1.47); MONOCYTES PERCENT AUTO 9 % (4-13); Mean Corpuscular HGB 30.1 pg (26.0-34.0); Mean Corpuscular HGB Conc 31.6 g/dL (31.5-36.5); Mean Platelet Volume 9.8 fL (9.1-12.4); NEUTROPHILS ABSOLUTE AUTO 5.51 K/mm3 (1.96-9.15); NEUTROPHILS PERCENT AUTO 76 % (41-73); Platelet Count 121 K/mm3 (150-400); RDW Coefficient Variation 11.9 % (11.7-14.2); RDW Standard Deviation 40.9 fL (35.1-46.3); Red Blood Cell Count 2.79 M/mm3 (3.80-5.20); White Blood Cell Count 7.29 K/mm3 (4.00-11.30)
[2018-12-09 05:20] LABS: Mean Corpuscular Volume 95 fL (80-100)
[2018-12-09 05:40] LABS: Anion Gap 4 mmol/L (6-16); Blood Urea Nitrogen 23 mg/dL (8-24); CO2, Blood 31 mmol/L (21-32); Calcium, Blood 8.6 mg/dL (8.5-10.1); Chloride, Blood 102 mmol/L (98-108); Creatinine, Blood 0.82 mg/dL (0.40-1.00); Glomerular Filtration Rate >60 (60-); Glucose, Blood 116 mg/dL (70-99); Magnesium, Blood 2.1 mg/dL (1.6-2.4); Potassium, Blood 4.1 mmol/L (3.5-5.5); Sodium, Blood 137 mmol/L (136-145)
--- NOTE | 2018-12-09 08:33 | NUR ---
PT UP IN CHAIR PT DRESSED, UP IN CHAIR, AND EATING BREAKFAST AT THIS TIME. TOLERATING ACTIVITY WELL AND REPORTS PAIN AT TOLERABLE LEVEL
--- NOTE | 2018-12-09 08:35 | NUR ---
WORKING WITH THERAPY NOW
--- NOTE | 2018-12-09 10:28 | NUR ---
MORNING NOTE PT DRESSED AND UP IN CHAIR. PAIN WELL CONTROLLED PER EMAR AND REPOSITIONING. WORKED WITH THERAPY THIS MORNING AND TOLERATED IT WELL. DENIES ANY SOB OR DYSPNEA.
[2018-12-09] MEDS ORDERED: OXYC5 PO (16:17)
--- NOTE | 2018-12-09 16:55 | NUR ---
DISCHARGE SUMMARY PT DISCHARGED HOME AT 1640 WITH [id number]. SCRIPTS, DRESSINGS, PERSONAL BELONGINGS, POLAR PACK, AND DISCHARGE INSTRUCTIONS PROVIDED TO PT AND FAMILY. WORKED WELL WITH THERAPY TODAY. LUNGS SOUNDS AT BASELINE. PAIN MANAGED AT TOLERABLE LEVEL T/O SHIFT WITH PO MEDICATIONS. REPORTS TOLERATING REGULAR DIET, VOIDING AND HAVING BM W/OUT DIFFICULTY. HOME HEALTH SET UP PRIOR TO DC W/TRUCKING CONTRACTOR. PT AND FAMILY MEMBER VERBALIZED UNDERSTANDING OF INSTRUCTIONS AND DENIED ANY FURTHER CONCERNS.
[2018-12-10] MEDS ORDERED: Roxicodone15 MG PO (17:25)
[2018-12-10] MEDS ORDERED: TUDORZA PRESS400 MCG (17:26)
[2018-12-10] MEDS ORDERED: TRAZ50 PO (17:27)
[2018-12-10] MEDS ORDERED: BUDE6HFA INH (17:27)
[2018-12-10] MEDS ORDERED: ELIQUIS5 MG PO (17:28)
[2018-12-10] MEDS ORDERED: Bupropion HCl150 M2 PO (17:29)
[2018-12-10] MEDS ORDERED: CLOP75 PO (17:30)
[2018-12-10] MEDS ORDERED: DONE10 PO (17:30)
[2018-12-10] MEDS ORDERED: ATORVASTATIN CA20 MG PO (17:30)
== END 2018-12-09 16:53 | disposition home health service (06) | DRG 470 ==
LOC: SURS 12-08 05:56 → PRE IP 12-08 07:30 → SURS 12-08 12:12
PROVIDERS: ADMIT Orthopaedic Surgery
PROC: 0SR90JZ Replacement of Right Hip Joint with Synthetic Substitute, Open Approach (ICD-10-PCS; principal; 2018-12-08 07:30)
PROC: 0SP904Z Removal of Internal Fixation Device from Right Hip Joint, Open Approach (ICD-10-PCS; 2018-12-08 07:30)
DX: M16.11 Unilateral primary osteoarthritis, right hip (principal); Z95.2 Presence of prosthetic heart valve; Z87.891 Personal history of nicotine dependence; J43.9 Emphysema, unspecified; Z99.81 Dependence on supplemental oxygen; I10 Essential (primary) hypertension; I48.91 Unspecified atrial fibrillation; M81.0 Age-related osteoporosis without current pathological fracture; Z87.81 Personal history of (healed) traumatic fracture; M79.7 Fibromyalgia
CPT/HCPCS: 36415; 72170; 80048; 83735; 85025; 86850; 86900; 86901; 88300; 90686; 94640; 94760; 97110; 97116; 97162; 97166; 97530; 97535; C1713; C1769; C1776; J0171; J0690; J0735; J1100; J1885; J2370; J2405; J2704; J2795; J3010; J7120

== ENCOUNTER 2018-12-21 19:29 | Inpatient (IN) | payer MEDICARE, BC ==
[~2018-12-21] VITALS: Ht 154.9 cm; Wt 55.1 kg
[~2018-12-21 19:29] MED LIST changes: +ATORVASTATIN CA20 MG PO; +Bupropion HCl150 M2 PO; +ELIQUIS5 MG PO; +OXYC5 PO; +TUDORZA PRESS400 MCG
[2018-12-21 19:59] LABS: BASOPHILS ABSOLUTE AUTO 0.07 K/mm3 (0.00-0.23); BASOPHILS PERCENT AUTO 1 % (0-2); EOSINOPHILS ABSOLUTE AUTO 0.23 K/mm3 (0.00-0.68); EOSINOPHILS PERCENT AUTO 2 % (0-6); Hematocrit 35.2 % (33.0-51.0); Hemoglobin 10.6 g/dL (11.5-16.0); IMMATURE GRAN ABSOLUTE AUTO 0.04 K/mm3 (0.00-0.10); IMMATURE GRAN PERCENT AUTO 0 % (0-1); LYMPHOCYTES ABSOLUTE AUTO 1.05 K/mm3 (0.84-5.20); LYMPHOCYTES PERCENT AUTO 10 % (21-46); MONOCYTES ABSOLUTE AUTO 0.64 K/mm3 (0.16-1.47); MONOCYTES PERCENT AUTO 6 % (4-13); Mean Corpuscular HGB 31.1 pg (26.0-34.0); Mean Corpuscular HGB Conc 30.1 g/dL (31.5-36.5); Mean Platelet Volume 9.5 fL (9.1-12.4); NEUTROPHILS ABSOLUTE AUTO 8.28 K/mm3 (1.96-9.15); NEUTROPHILS PERCENT AUTO 80 % (41-73); Platelet Count 348 K/mm3 (150-400); RDW Coefficient Variation 14.8 % (11.7-14.2); RDW Standard Deviation 54.9 fL (35.1-46.3); Red Blood Cell Count 3.41 M/mm3 (3.80-5.20); White Blood Cell Count 10.31 K/mm3 (4.00-11.30)
[2018-12-21 20:00] LABS: Mean Corpuscular Volume 103 fL (80-100)
[2018-12-21 20:09] LABS: Alanine Aminotransfer (ALT/SGP 25 U/L (12-78); Albumin, Blood 3.3 g/dL (3.4-5.0); Albumin/Globulin Ratio 0.9 (0.8-1.8); Alk Phos 119 U/L (50-136); Anion Gap 4 mmol/L (6-16); Aspartate Aminotrans (AST/SGOT 26 U/L (12-37); Bilirubin, Total 0.4 mg/dL (0.1-1.0); Blood Urea Nitrogen 25 mg/dL (8-24); Bun/Creatinine Ratio 37.9 (12.0-20.0); CO2, Blood 30 mmol/L (21-32); Calcium, Blood 8.8 mg/dL (8.5-10.1); Chloride, Blood 107 mmol/L (98-108); Creatinine, Blood 0.66 mg/dL (0.40-1.00); Globulin, Blood 3.8 g/dL (2.2-4.0); Glomerular Filtration Rate >60 (60-); Glucose, Blood 119 mg/dL (70-99); Potassium, Blood 4.3 mmol/L (3.5-5.5); Sodium, Blood 141 mmol/L (136-145); Total Protein, Blood 7.1 g/dL (6.4-8.2); Troponin I <0.015 ng/mL (0.000-0.040)
[2018-12-21] MEDS ORDERED: BUDE6HFA INH (20:38)
[2018-12-21] MEDS ORDERED: CLOP75 PO (20:39)
[2018-12-22 04:13] LABS: Adenovirus Not Detected (NOT DETECT); Bordetella pertussis Not Detected (NOT DETECT); Chlamydophila pneumoniae Not Detected (NOT DETECT); Coronavirus 229E Not Detected (NOT DETECT); Coronavirus HKU1 Not Detected (NOT DETECT); Coronavirus NL63 Not Detected (NOT DETECT); Coronavirus OC43 Not Detected (NOT DETECT); Human Metapneumovirus Not Detected (NOT DETECT); Human Rhinovirus/Enterovirus Not Detected (NOT DETECT); Influenza A Not Detected (NOT DETECT); Influenza A/2009-H1 Not Detected (NOT DETECT); Influenza A/H1 Not Detected (NOT DETECT); Influenza A/H3 Not Detected (NOT DETECT); Influenza B Not Detected (NOT DETECT); Mycoplasma pneumoniae Not Detected (NOT DETECT); Parainfluenza Virus 1 Not Detected (NOT DETECT); Parainfluenza Virus 2 Not Detected (NOT DETECT); Parainfluenza Virus 3 Not Detected (NOT DETECT); Parainfluenza Virus 4 Not Detected (NOT DETECT); Respiratory Syncytial Virus Not Detected (NOT DETECT)
[2018-12-22 04:43] LABS: Hematocrit 31.9 % (33.0-51.0); Hemoglobin 9.6 g/dL (11.5-16.0); Mean Corpuscular HGB 31.6 pg (26.0-34.0); Mean Corpuscular HGB Conc 30.1 g/dL (31.5-36.5); Mean Corpuscular Volume 105 fL (80-100); Mean Platelet Volume 9.5 fL (9.1-12.4); Platelet Count 281 K/mm3 (150-400); RDW Coefficient Variation 14.7 % (11.7-14.2); Red Blood Cell Count 3.04 M/mm3 (3.80-5.20); White Blood Cell Count 5.73 K/mm3 (4.00-11.30)
[2018-12-22 05:00] LABS: Alanine Aminotransfer (ALT/SGP 22 U/L (12-78); Albumin, Blood 2.9 g/dL (3.4-5.0); Albumin/Globulin Ratio 0.8 (0.8-1.8); Alk Phos 110 U/L (50-136); Anion Gap 7 mmol/L (6-16); Aspartate Aminotrans (AST/SGOT 23 U/L (12-37); Bilirubin, Total 0.4 mg/dL (0.1-1.0); Blood Urea Nitrogen 19 mg/dL (8-24); Bun/Creatinine Ratio 31.6 (12.0-20.0); CO2, Blood 27 mmol/L (21-32); Calcium, Blood 8.9 mg/dL (8.5-10.1); Chloride, Blood 106 mmol/L (98-108); Globulin, Blood 3.8 g/dL (2.2-4.0); Glomerular Filtration Rate >60 (60-); Glucose, Blood 187 mg/dL (70-99); Potassium, Blood 4.2 mmol/L (3.5-5.5); Sodium, Blood 140 mmol/L (136-145); Total Protein, Blood 6.7 g/dL (6.4-8.2)
--- NOTE | 2018-12-22 05:04 | NUR ---
Shift Summary Patient slept intermittently between cares. She was able to transfer to bedside commode with assist of 1 and GB. O2 saturation has maintained in the mid 90's on 2L which is her baseline home O2 flow. she did complain of SOB on exertion. She has a thick, productive cough with yellow/brown sputum -- culture sent as ordered.
[2018-12-22 05:17] LABS: Troponin I 0.025 ng/mL (0.000-0.040)
[2018-12-22 13:11] LABS: Troponin I 0.027 ng/mL (0.000-0.040)
--- NOTE | 2018-12-22 15:58 | NUR ---
SHIFT SUMMARY PT AWAKE DURING SHIFT REPORT, LYING HF WATCHING TV. DENIED NEEDS. PT LATER C/O ANXIETY AND REPORTED THAT SHE TAKES WELLBUTRIN AND MAY NEED HER DOSE INCREASED. AM MEDS GIVEN PER EMAR WITH WELLBUTRIN ORDERED. PT SOON REPORTED THAT SHE FELT BETTER AND HAS REMAINED CALM ALL DAY. PT DID C/O PATTERSON THIS AFTERNOON AND HAD REQUESTED MORTRIN; INFORMED PT THAT SHE ONLY HAD OXYCODONE AT THIS TIME. OXYCODONE GIVEN PER EMAR; PT REPORTED HER PATTERSON GONE A LITTLE WHILE LATER. PT GIVEN BED BATH THIS AM, PER REQUEST. DR ABBASI IN TO SEE PT THIS AM. VERBAL ORDER TO REMOVE TELE FOR SHOWER GIVEN. PER NOC SHIFT, PT'S HR HAD BEEN A-FIB IN THE 120'S. METOPROLOL GIVEN PER EMAR WHICH HAS HELPED. PT HAS BEEN CALLING APPROPRIATELY TO GET UP TO BSC NEEDED. MARIAHG TO R HIP; C/D/I D/T RECENT HIP REPLACEMENT. PT'S SON CALLED TO CK ON HIS MOM; PT GAVE VERBAL PERMISSION TO GIVE SON INFORMATION R/T CARE. NO FURTHER NEEDS TO PRESENT.
--- NOTE | 2018-12-23 07:12 | NUR ---
12/23/18 0600 PT HAS O2 ON 2 LPM VIA N/C. CALLS FOR HELP APPROPRIATELY TO GET UP. DRESSING TO RT HIP REMAINS INTACT. VITALS STABLE. TAKING ORAL INTAKE WELL AND VOIDING WELL. UNEVENTFUL NIGHT.
--- NOTE | 2018-12-23 08:20 | NUR ---
PT PLEASANT COOP A/O TALKING ABOUT BASEBALL AND WHICH PITCHER DID WHAT. STATES LIGHT PAIN IN HIP. REFUSED PAIN MED. REQUEST FOR MOTRIN, WHICH SUITES HER BETTER. WILL ASK DR ABBASI FOR MOTRIN. H/R IRREG, HX OF AFIB. NO MURMER NOTED. PER TELE: AFIB AT 85. LUNGS CRACKLES BASES, DIM UPPER. SOB WITH EXERTION. ON 2L O2 AT THIS TIME. BT HYPO. PT STATES LAST BM 2 DAYS. STATES NORMAL. VOIDS 1 ASST TO BSC. BED IN LOW POSITION, CALL LITE IN REACH, CALLS APPROP
--- NOTE | 2018-12-23 10:23 | NUR ---
CALLED DR ABBASI, PT REQUESTING MOTRIN VS OXY FOR PAIN. WILL REVIEW, STATES PROB NOT R/T CHF. STATES WILL SEE PT SOON
--- NOTE | 2018-12-23 12:27 | NUR ---
SPOKE TO DR ABBASI. OKAY TO DRESSING CHANGE. IF NICK STILL IN, MAY CALL DR VANG , IN OR TODAY, TO COME SEE AND OR REMOVE NICK. WILL DO DRESSING CHANGE AFTER LUNCH ON PT. ASSESS THEN. PT THINKS NICK STILL IN.
--- NOTE | 2018-12-23 12:47 | NUR ---
SPOKE TO OR COUNTING MACHINE OPERATOR. EXPLAINED PT STILL HAS NICK. HAS BEEN ABOUT 2 W[address]KS SINCE HIP SURG. DR JEAN HAS BEEN FOLLOWING. SHE TO ASK HIM IF NEEDS TO SEE AT THIS TIME. NICK OUT? PT STATES MISSED HER F/UP APPT THIS WEEK SINCE ADMIT HERE FOR RESP FAIL/COPD. PEND DR RESPONSE.
--- NOTE | 2018-12-23 12:50 | NUR ---
DRESSING CHANGE ON RT HIP. SPOKE TO ARIN ANDREW ON SURG. HYDRASEAL IS WHAT IS ON PT. AND IS APPROP TO REPLACE HAS SMALL 1 INCH SPOT ON DRESSING. AT TOP OF INCISION. ASSESSED. NO FURTHER DRAINAGE NOTED. NICK INTACT. NO REDNESS NOTED. REPLACED DRESSING. NO OTHER CONCERNS. CALLED DR ESPINOSA THROUGH THE MUSHROOM CUTTER. LMTC OR TO SEE. RE NICK AND MISSED APPOINTMENT PER PT.
--- NOTE | 2018-12-23 16:36 | NUR ---
Spiritual CAre inital note: Mrs. Honorio kenny she is recovering. She is looking forward to going to SNF to regain strength and independance. She lives alone in a trailer on her son's property. She denied concerns or worries. She is non-latter-day, but responded well to affirmation of strength. I will remain available.
--- NOTE | 2018-12-23 16:42 | NUR ---
PT PLEASANT TODAY. DR JEAN DID HAVE HIS ASST ERIC COME TO HOSP BED AND PULL NICK. PT ELISSA WELL. NEW HYDRACELL BANDAGE PLACED TODAY. PT AMBULATED TO BSC TODAY WELL 1 ASST. MEDICATED FOR PAIN ONCE TODAY. NO OTHER CONCERNS AT THIS TIME. BED IN LOW POSITION, CALL LITE IN REACH. CALLS APPROP
--- NOTE | 2018-12-24 04:35 | NUR ---
SHIFT SUMMARY: ALERT AND RESPONDING APPROPRIATELY TO QUESTIONS AND CONVERSATION. PLEASANT. COOPERATIVE. MAKING NEEDS KNOWN. CALLS FOR ASSIST WITH T/F TO BSC. REQUESTED HOB ELEVATED TO SLEEP. 02 SAT 94% ON 2L VIA NC. DYSPNEA WITH EXERTION. SOB RESOLVES QUICKLY WITH REST. LS DIM. INFREQUENT NON-PRODUCTIVE COUGH TONIGHT. HAS SLEPT WELL MOST OF NIGHT. NO COMPLAINTS AT THIS TIME. BED LOW, CALL LIGHT IN REACH.
--- NOTE | 2018-12-24 12:18 | NUR ---
PATIENT GAVE STUDENT NURSE PERMISSION TO PERFORM CARE ON 12/24/18.
--- NOTE | 2018-12-24 17:29 | NUR ---
SUMMARY PT IS A/O X4, PLEASANT AFFECT. SHE IS S/P R HIP FX SURG, DRSG TO SITE CHANGED YESTERDAY, REMAINS CDI, NO S/S INFECTION. SHE IS WORKING W PT/OT, GOOD PARTICIPATION. UP IN CHAIR/RECLINER MOST OF DAY. 1 ASSIST TO BSC. LUNGS CLEAR, ON 2L O2 HOME DOSE, BIOX 93%, STATE NO SOB @ REST. HR 80'S AFIB/TELE MX. SHE STATE DR ABBASI IN THIS AM, STATE POSSIBLE TRANSFER TO SNF TOMORROW. VSS.
--- NOTE | 2018-12-25 07:36 | NUR ---
SHIFT SUMMARY: A/OX3. VSS. RESPS 95-96% ON RA. COMMUNICATES NEEDS. LSCTA. INTERMITTENT NON-PRODUCTIVE, CONGESTED SOUNDING COUGH. SOB WITH EXERTION. C/O PAIN IN UPPER BACK AND RIGHT HIP, PRN ANALGESICS EFFECTIVE. SLEPT WELL MOST OF NIGHT. NO COMPLAINTS AT THIS TIME. BED LOW, CALL BUTTON IN REACH.
[2018-12-25] MEDS ORDERED: OXYC5 PO (11:52)
[2018-12-25] MEDS ORDERED: AZIT500 (11:53)
[2018-12-25] MEDS ORDERED: ELIQUIS2.5 MG PO (11:55)
--- NOTE | 2018-12-25 13:46 | NUR ---
SHIFT SUMMARY PAT IS LEAVING TO [facility] AT 2PM BY WC. CALLED REPORT TO [facility] AND SPOKE TO LIANNA. PT GOT OXY FOR BACK PAIN, SBA TO BSC, DRESSING TO R HIP C/D/I, DUE TO BE CHANGED EITHER TOMORROW OR THE NEXT DAY. DRESSING SENT WITH HER, UPDATED [facility]. TELE DC'D (SHOWED AFIB). 2 L OXYGEN, TANK TO BE SENT WITH TRANSPORT AND THEY WILL RETURN IT. TOOK MEDS PRESCRIBED. PIV REMOVED, HARD SCRIPT SENT WITH CM'S DC PACKET. CALL LIGHT IN REACH, WCTM
== END 2018-12-25 14:32 | DRG 291 ==
LOC: ER 19:29 → MEDS 19:30
PROVIDERS: Student in an Organized Health Care Education/Training Program; ADMIT Internal Medicine
DX: I11.0 Hypertensive heart disease with heart failure (principal); J96.21 Acute and chronic respiratory failure with hypoxia; I48.20 Chronic atrial fibrillation, unspecified; J44.1 Chronic obstructive pulmonary disease with (acute) exacerbation; I50.33 Acute on chronic diastolic (congestive) heart failure; I27.20 Pulmonary hypertension, unspecified; Z99.81 Dependence on supplemental oxygen; Z95.2 Presence of prosthetic heart valve; M79.7 Fibromyalgia; E78.5 Hyperlipidemia, unspecified; Z96.641 Presence of right artificial hip joint; I44.7 Left bundle-branch block, unspecified
CPT/HCPCS: 0099U; 36415; 71045; 80053; 82550; 83880; 84484; 85025; 85027; 87070; 87205; 93005; 93010; 93971; 94640; 94664; 94667; 94760; 96365; 96367; 96375; 97110; 97162; 97166; 97530; 97535; 98960; 99285-25; G0378; J0456; J1100; J1940; J1956; J7050

== ENCOUNTER → 2019-07-25 | Outpatient (CLI) | payer MEDICARE, BC ==
[~2019-07-25] MED LIST changes: +AZIT500
[2019-07-26 14:02] LABS: Adenovirus F 40/41 Not Detected (NOT DETECT); Astrovirus Not Detected (NOT DETECT); Campylobacter Sp Not Detected (NOT DETECT); Cryptosporidium Not Detected (NOT DETECT); Cyclospora Cayetanensis Not Detected (NOT DETECT); E. Coli O157 Not Detected (NOT DETECT); Entamoeba Histolytica Not Detected (NOT DETECT); Enteroaggregative E. coli-EAEC Not Detected (NOT DETECT); Enteropathogenic E. coli-EPEC Not Detected (NOT DETECT); Enterotoxigenic E. coli-ETEC Not Detected (NOT DETECT); Giardia Lamblia Not Detected (NOT DETECT); Norovirus GI/GII Not Detected (NOT DETECT); Plesiomonas Shigelloides Not Detected (NOT DETECT); Rotavirus A Not Detected (NOT DETECT); Salmonella Sp Not Detected (NOT DETECT); Sapovirus Not Detected (NOT DETECT); Shiga Toxin-prod E. coli-STEC Not Detected (NOT DETECT); Shigella/Enteroin E. coli-EIEC Not Detected (NOT DETECT); Vibrio Cholerae Not Detected (NOT DETECT); Vibrio Sp Not Detected (NOT DETECT); Yersinia Enterocolitica Not Detected (NOT DETECT)
== END | disposition home or self-care (01) ==
LOC: LAB EV 20:00
PROVIDERS: Nurse Practitioner
DX: R19.7 Diarrhea, unspecified (principal)
CPT/HCPCS: 0097U